=== PATIENT | female | born 1965 | race Caucasian/White ===

== ENCOUNTER → 2016-10-26 | Outpatient (CLI) | payer BC ==
[~2016-10-26] MED LIST: AMOX875T PO; DICL-201 PO; DULO60CA44 PO; OMEP20TA14 PO; ONDA4TAB10 PO; ONDA4TAB4 PO; PARO1TAB9 PO; TRAM-10 PO; TRAM-453 PO; ZNT/150 PO
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
== END | disposition home or self-care (01) ==
LOC: C.RAD 13:17
PROVIDERS: ATTEND Radiology Diagnostic Radiology
DX: M79.671 Pain in right foot (principal); S99.921A Unspecified injury of right foot, initial encounter; V80.919A Animal-rider injured in unspecified transport accident, initial encounter; Y93.52 Activity, horseback riding

== ENCOUNTER 2016-11-06 06:04 | Day surgery (SDC) | payer BC ==
[2016-10-29 08:45] VITALS: BMI 35.0
--- NOTE | 2016-10-29 09:09 | PAT Medication Instructions ---
Service Date Oct 29, 2016. Current Home Medication List Diclofenac (Voltaren), 75 MG PO QAM Duloxetine Hcl (Cymbalta), 60 MG PO Q2D Omeprazole Magnesium (Prilosec Otc), 20 MG PO QAM Ranitidine Hcl (Zantac), 150 MG PO QAM Tramadol (Ultram), 50-100 MG PO PRN Medication Instructions For Your Scheduled Surgery - Hold the following medications the morning of surgery: Diclofenac (Voltaren), 75 MG PO QAM - Take the following medications the morning of surgery with a sip of water OTHERWISE NOTHING TO EAT OR DRINK AFTER MIDNIGHT: Omeprazole Magnesium (Prilosec Otc), 20 MG PO QAM Ranitidine Hcl (Zantac), 150 MG PO QAM Tramadol (Ultram), 50-100 MG PO PRN (may take up to 4 hours prior to surgery if needed) Duloxetine Hcl (Cymbalta), 60 MG PO Q2D If you have any questions please call us at [phone] or [phone] or [phone]
[2016-10-29 09:52] LABS: BASO % 0.1 %; BASO ABS # 0.01 K/uL (0-0.2); COMPLETE YES; EOS % 1.7 %; HEMATOCRIT 36.6 % (37-47); IG% 0.3 %; LYMPH % 28.4 %; LYMPH ABS # 2.19 K/uL (1.2-3.4); MEAN CELL VOLUME 89.3 fL (80-100); MEAN CORPUSCULAR HGB CONC 33.6 g/dl (32-36); MEAN PLATELET VOLUME 10.5 fL (7.4-10.4); MONO % 5.6 %; NEUT % 63.9 %; PLATELET COUNT 207 K/uL (130-400); WHITE BLOOD COUNT 7.71 K/uL (4.8-10.8)
--- NOTE | 2016-10-29 10:02 | DIAGNOSTIC IMAGING REPORT ---
TWO VIEW CHEST CLINICAL HISTORY: Preoperative examination. FINDINGS: PA and lateral chest radiographs are compared to study dated 03/12/2015. The cardiomediastinal silhouette is unremarkable. The lungs and pleural spaces are clear. There is no pneumothorax. The bony thorax appears intact. IMPRESSION: No active disease in the chest. Electronically signed by: Nawaf Caruso M.D. 10/29/2016 10:01 AM Dictated Date/Time: 10/29/2016 10:00 AM
[2016-10-29 10:04] LABS: BUN/CREATININE RATIO 12.8 (10-20); CALCIUM 8.6 mg/dl (8.5-10.1); CREATININE 0.8 mg/dl (0.60-1.20); POTASSIUM 4.4 mmol/L (3.5-5.1)
[~2016-11-06] VITALS: Ht 172.7 cm; Wt 104.7 kg
[~2016-11-06 06:04] MED LIST changes: -AMOX875T PO; +LACTATED RINGER'S 1000ML 1,000 ML IV SCH; -ONDA4TAB10 PO; -ONDA4TAB4 PO; -PARO1TAB9 PO; -TRAM-453 PO
--- NOTE | 2016-11-06 06:24 | History & Physical Bridge Note ---
H&P Re-Evaluation Bridge Note: I have examined the patient, reviewed the History & Physical and in the interval since the performance of the History & Physical I have noted the following changes of clinical significance: No changes noted in waiting room
[2016-11-06 06:26] VITALS: BP 146/77; PULSE 69; TEMP 36.4; O2SAT 95; Ht 172.7 cm; Wt 104.7 kg
[2016-11-06] MEDS ORDERED: ONDANSETRON INJ 2 MG/ML 2 ML VIAL ONE ×2 (06:47→09:31)
[2016-11-06] MEDS ORDERED: ROCURONIUM BROMIDE 10 MG/ML 5 ML VIAL ONE (06:47)
[2016-11-06] MEDS ORDERED: PROPOFOL IV EMULSION 10 MG/ML 20 ML VIAL IV ONE (06:47)
[2016-11-06] MEDS ORDERED: GLYCOPYRROLATE INJ 0.2 MG/ML VIAL ONE (06:47)
[2016-11-06] MEDS ORDERED: NEOSTIGMINE METHYLSULFATE 5 MG/5 ML SYR ONE (06:47)
[2016-11-06] MEDS ORDERED: MIDAZOLAM HCL 1 MG/ML 2ML VIAL ONE (06:47)
[2016-11-06] MEDS ORDERED: DEXAMETHASONE SOD INJ 4 MG/ML VIAL ONE (06:47)
[2016-11-06] MEDS ORDERED: FENTANYL CITRATE INJ 50 MCG/1 ML 2 ML VIAL ONE ×3 (06:47→09:29)
[2016-11-06] MEDS ORDERED: LIDOCAINE HCL 2% 2 ML VIAL (20MG/ML) ONE (06:47)
[2016-11-06] MEDS ORDERED: LIDOCAINE/EPINEPHRINE 1% 20 ML VIAL ONE (07:13)
[2016-11-06] MEDS ORDERED: CEFOXITIN SOD 1 GM VIAL ONE (07:34)
[2016-11-06] MEDS ORDERED: LACTATED RINGER'S 1000ML 1,000 ML IV SCH (09:11)
[2016-11-06] MEDS ORDERED: TRAM-453 PO (09:13)
[2016-11-06] MEDS ORDERED: AMOX875T PO (09:13)
[2016-11-06] MEDS ORDERED: OXYCODONE/ACETAMINOPHEN 5-325 TAB PO PRN (09:15)
[2016-11-06] MEDS ORDERED: MoRPHine SULFATE 4 MG/ML 1 ML CARP\\VIAL IV PRN (09:15)
[2016-11-06] MEDS ORDERED: ONDANSETRON INJ 2 MG/ML 2 ML VIAL IV PRN ×2 (09:15→09:45)
[2016-11-06] MEDS ORDERED: TRAMADOL HCL 50 MG TAB PO PRN (09:15)
--- NOTE | 2016-11-06 09:15 | Discharge Instructions ---
Discharge Instructions Visit Reason for Visit: Benign Neoplasm Of [place] Discharge Discharge Diagnosis / Problem: Laparoscopic appendectomy Discharge Goals Goal(s): Improve disease control Activity Recommendations Activity Limitations: as noted below Lifting Limitations: no more than 10 pounds Shower/Bathe: tomorrow Driving or Machine Use: resume 3 days after discharge Anesthesia . Post Anesthesia Instructions: If you have had General Anesthesia or IV Sedation: * Do not drive today. * Resume driving when surgeon permits. * Do not make important decisions or sign legal documents today. * Call surgeon for: 1. Temperature elevations greater than 101 degrees F. 2. Uncontrollable pain. 3. Excessive bleeding. 4. Persistent nausea and vomiting. 5. Medication intolerance (nausea, vomiting or rash). * For nausea and vomiting use only clear liquids such as: tea, soda, bouillon until nausea subsides, then gradually increase diet as tolerated. * If you have any concerns or questions, call your surgeon's office. If physician is unavailable and it is an emergency, call 911 or go to the nearest emergency room. . Instructions / Follow-Up Instructions / Follow-Up Dr. Shepard in 1 week, call [phone] if you do not already have an appt or with any questions Procedures Procedures Performed: Laparoscopic appendectomy with frozen section, partial Cecetomy Pending Studies Studies pending at discharge: no Medical Emergencies . Who to Call and When: Medical Emergencies: If at any time you feel your situation is an emergency, please call 911 immediately. . Non-Emergent Contact Non-Emergency issues call your: Surgeon Call Non-Emergent contact if: you have a fever, temperature is above 101.5, your pain is not controlled, wound has increased redness . . "Provider Documentation" section prepared by Avery Rosenbaum.
--- NOTE | 2016-11-06 09:21 | [facility] Post Operative Brief Note ---
Immediate Operative Summary Operative Date Nov 06, 2016. Pre-Operative Diagnosis Benign neoplasm of appendix Post-Operative Diagnosis Same Procedure(s) Performed Laparoscopic appendectomy with frozen section, partial Cecetomy Surgeon Dr Shepard Grey Roll Man Surgeon(s) Avery Rosenbaum PA-C Estimated Blood Loss 5ml Findings lesion appendeceal orifice completely excised per pathologist and fs benign Specimens Frozen section #1 appendix taken to pathology by Dr Shepard
[2016-11-06] MEDS ORDERED: MEPERIDINE HCL 25 MG/ML CARP IV PRN (09:45)
[2016-11-06] MEDS ORDERED: FENTANYL CITRATE INJ 50 MCG/1 ML 2 ML VIAL IV PRN (09:45)
[2016-11-06] MEDS ORDERED: EpHEDrine SULFATE INJ 50 MG/ML AMP IV PRN (09:45)
[2016-11-06] MEDS ORDERED: ATROPINE SULFATE 0.1 MG/ML 5ML SYR IV PRN (09:45)
[2016-11-06] MEDS ORDERED: LABETALOL HCL IV 5 MG/ML 20ML IV PRN (09:45)
[2016-11-06] MEDS ORDERED: HYDROmorphone INJ 1 MG/ML SYR IV PRN (09:45)
[2016-11-06] MEDS ORDERED: HYDROmorphone INJ 1 MG/ML SYR ONE (09:50)
[2016-11-06] MEDS ORDERED: METOCLOPRAMIDE HCL INJ 5 MG/ML 2 ML VIAL ONE (09:50)
--- NOTE | 2016-11-06 10:23 | OPERATIVE REPORT ---
DATE OF OPERATION: 11/06/2016 SURGEON: Dr. Shepard. INTERNATIONAL RECRUITER: MICHELLE Huynh. PREOPERATIVE DIAGNOSIS: Lesion at the appendiceal orifice with biopsy, not enough tissue for significant diagnosis by colonoscopy. POSTOPERATIVE DIAGNOSIS: Same, with significant adhesions through the appendix which was retroperitoneal, and a right ovarian cyst. Pictures were taken and given to the patient's . PROCEDURE: Laparoscopic appendectomy, partial cystectomy with frozen section. SUMMARY: The patient was brought into the operating room. She had voided prior to going to the OR. The area was prepped with Betadine solution. The abdomen then properly draped. We made a small incision supraumbilically enough to place a Veress needle followed by 5 mm trocar. Point of entry inspected and no injury identified. At this point, we visualized the right upper quadrant which was free of any pathology. No abdominal wall pathology was identified. The patient did have a cyst in the right ovary, which we took pictures, it may have been about 5 cm in size and these pictures will be given to her , a physician, and will discuss with the patient also. The patient had bilateral wide external ring. The appendix would not be visualized at this time, therefore, we placed a 5 mm right upper quadrant port under direct visualization and changed the umbilical port to an 11 mm that could accommodate the FRANK, and then placed a 5 mm left lower quadrant port with preemptive local analgesia 1% Xylocaine. At this point, with alternating maneuver in these 3 ports we were able to identify the appendix at the base, elevated and found to be retroperitoneal and significantly scarred in probably indicating a possibility of concurred chronic appendicitis. We finally, we were able to elevate the tip with the retroperitoneal elevated enough. We used clips to pretty much go through the mesoappendix and even the lateral portion at the base of the appendix with significant adhesions onto the cecum, which we took down. Once we felt comfortable that we had a significant space and we were beyond the appendiceal orifice, we placed first a 45 blue FRANK, but this would not cover the whole area significantly. Then placed a 60 FRANK, angulated it such that we were parallel and not near the ileocecal valve, but we were well in the cecum and we were able to resect part of the cecum and the appendix. At this point, the area was checked for hemostasis and appeared satisfactory. We irrigated it. Then I took the specimen to pathology and reviewed it with the pathologist. The staple line was cut off the specimen and once this was cut we could see that the patient had almost like a fungating type of mucosal area to appendiceal orifice, this may have been invaginating through the cecal area, but the pathologist took multiple sections of it. First of all, the tissue underneath the staple line was all benign. 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 At this point, we reestablished the pneumoperitoneum. I irrigated the abdomen, placed the patient in reverse Trendelenburg. Inspected the area of the staple line, which was free of any bleeding. At this point individual trocars removed under direct visualization, and last the umbilical trocar. We used #0 Prolene suture [id number] x2 from the umbilical tissue, the other ones 0 Monocryl and Steri-Strips applied. The procedure was tolerated well by the patient. Estimated blood loss approximately 35 mL. The patient was taken to recovery room in good condition. I attest to the content of the Intraoperative Record and any orders documented therein. Any exceptions are noted below. HERID
--- NOTE | 2016-11-06 10:24 | Anesthesiology Progress Note ---
Anesthesia Post Op Note Date & Time Nov 06, 2016 at 10:24 Vital Signs Pain Intensity: 4 Vital Signs Past 12 Hours Date Time Temp Pulse Resp B/P Pulse Ox O2 Delivery O2 Flow Rate FiO2 11/06/16 10:15 36.2 58 13 112/69 97 Nasal Cannula 2 11/06/16 10:05 62 15 119/73 99 Nasal Cannula 2 11/06/16 09:55 63 17 113/68 96 Nasal Cannula 2 11/06/16 09:45 57 15 126/80 96 Nasal Cannula 2 11/06/16 09:35 60 18 132/85 100 Nasal Cannula 4 11/06/16 09:25 69 19 132/86 99 Nasal Cannula 4 11/06/16 09:19 36.8 77 15 136/88 98 Mask 10 11/06/16 06:26 36.4 69 18 146/77 95 Room Air Notes Mental Status: alert / awake / arousable, participated in evaluation Pt Amnestic to Procedure: Yes Nausea / Vomiting: adequately controlled Pain: adequately controlled Airway Patency, RR, SpO2: stable & adequate BP & HR: stable & adequate Hydration State: stable & adequate Anesthetic Complications: no major complications apparent
[2016-11-06 10:30] VITALS: BP 115/72; PULSE 66; TEMP 36.6; O2SAT 97
[2016-11-06 11:03] VITALS: BP 115/76; PULSE 68; O2SAT 95
[2016-11-06 11:35] VITALS: BP 113/76; PULSE 66; TEMP 36.5; O2SAT 97
[2017-03-20] MEDS ORDERED: PARO1TAB9 PO (08:10)
== END 2016-11-06 11:55 | disposition home or self-care (01) ==
LOC: C.ACU 06:04
PROVIDERS: ATTEND Surgery
DX: D12.1 Benign neoplasm of appendix (principal); D12.0 Benign neoplasm of cecum; K66.0 Peritoneal adhesions (postprocedural) (postinfection); N83.291 Other ovarian cyst, right side; N85.2 Hypertrophy of uterus; Z98.890 Other specified postprocedural states

== ENCOUNTER → 2017-12-14 | Outpatient (CLI) | payer BC ==
[~2017-12-14] MED LIST changes: -DICL-201 PO; -DULO60CA44 PO; -LACTATED RINGER'S 1000ML 1,000 ML IV SCH; +PARO1TAB9 PO
== END | disposition home or self-care (01) ==
LOC: C.PAPS 11:46
PROVIDERS: ATTEND Obstetrics & Gynecology
DX: Z01.419 Encounter for gynecological examination (general) (routine) without abnormal findings (principal)